=== PATIENT | male | born 1935 | race Caucasian/White ===

== ENCOUNTER 2023-12-30 19:53 | Emergency (ER) | payer OTHER ==
[~2023-12-30] VITALS: Ht 170.2 cm; Wt 62.3 kg
[2023-12-30] MEDS: LIDOCAINE 2% (GLYDO= UROJET) 10 ML JELLY MM ONE (20:30)
[2023-12-30 21:26] LABS: BASOPHILS # (AUTO) 0.3 K/UL (0.0-0.2); BASOPHILS % (AUTO) 2.3 % (0.0-2.0); EOSINOPHILS # (AUTO) 0.2 K/uL (0.0-0.7); EOSINOPHILS % (AUTO) 1.5 % (0.0-7.0); HEMATOCRIT 42.2 % (36.7-47.1); HEMOGLOBIN 14.6 g/dL (12.5-16.3); LYMPHOCYTES # (AUTO) 0.7 K/uL (0.8-4.8); LYMPHOCYTES % (AUTO) 5.6 % (20.5-51.5); MEAN CORPUSCULAR HGB CONC 35 g/dL (32.5-36.3); MEAN CORPUSCULAR VOLUME 101.3 fL (73.0-96.2); MONOCYTES # (AUTO) 1.1 K/uL (0.1-1.30); MONOCYTES % (AUTO) 8.8 % (0.0-11.0); NEUTROPHILS % (AUTO) 81.8 % (38.5-71.5); PLATELET COUNT (AUTO) 213 K/uL (152-348); RED BLOOD CELL COUNT(AUTO) 4.17 MIL/uL (4.06-5.63); RED CELL DISTRIBUTION WIDTH 14.5 % (12.1-16.2); WHITE BLOOD COUNT (AUTO) 12.3 K/uL (3.6-10.2)
[2023-12-30 21:28] LABS: DIFFERENTIAL COMMENT 1
[2023-12-30 21:34] LABS: CALCIUM 10.3 mg/dL (8.5-10.1); CARBON DIOXIDE 25 mmol/L (21-32); CHLORIDE 99 mmol/L (98-107); CREATININE 2.8 mg/dL (0.6-1.3); GLUCOSE 128 mg/dL (74-106); SODIUM SERUM 137 mmol/L (136-145); UREA NITROGEN, BLOOD 56 mg/dL (7-18)
[2023-12-30 21:39] LABS: ALANINE AMINOTRANSFERASE 16 U/L (16-63); ALBUMIN 4.2 g/dL (3.4-5.0); ALKALINE PHOSPHATASE 78 U/L (50-136); ASPARTATE AMINOTRANSFERASE 13 U/L (15-37); BILIRUBIN,DIRECT 0.3 mg/dL (0.0-0.2); BILIRUBIN,TOTAL 1.1 mg/dL (0.2-1.0); TOTAL PROTEIN, SERUM 7.7 g/dL (6.4-8.2)
[2023-12-30 21:40] LABS: *BILIRUBIN,URIN 1+ (NEGATIVE); *BLOOD, URINE 3+ (NEGATIVE); *CLARITY,URINE TURBID (CLEAR); *COLOR,URINE RED (YELLOW); *KETONES,URINE TRACE (NEGATIVE); *PROTEIN,URINE 3+ (NEGATIVE); LEUKOCYTE ESTERASE ,URINE 3+ (NEGATIVE); NITRITE, URINE NEGATIVE (NEGATIVE); UGLUCOSE 2+ (NEGATIVE)
[2023-12-30] MEDS ORDERED: CEFTRIAXONE /D5W 50ML IVPB **ER PYXIS IV ONE (21:50)
[2023-12-30] MEDS ORDERED: LIDOCAINE 2% (GLYDO= UROJET) 10 ML JELLY MM ONE (21:50)
[2023-12-30] MEDS: CEFTRIAXONE 1 G in IV DEXTROSE 5% 50 ML IV ONE (21:51)
[2023-12-30] MEDS: IV NS 1000 ML 1,000 ML IV ONE (22:19)
[2023-12-31 01:32] VITALS: O2SAT 95
== END 2023-12-31 01:40 | disposition short-term general hospital (02) ==
LOC: ER 19:56
DX: R31.0 Gross hematuria (principal); D68.9 Coagulation defect, unspecified; R33.9 Retention of urine, unspecified; R00.1 Bradycardia, unspecified; F03.90 Unspecified dementia, unspecified severity, without behavioral disturbance, psychotic disturbance, mood disturbance, and anxiety; I48.91 Unspecified atrial fibrillation; Z20.822 Contact with and (suspected) exposure to COVID-19; Z88.0 Allergy status to penicillin
CPT/HCPCS: 99285; 96365; 71045; 96366; 87426; 80076; 80048; 81001; 85025; 85730; 36415; 93005; J0696; A4606; A4663